=== PATIENT | male | born 1980 | race Two or more races ===

== ENCOUNTER 2023-12-12 01:24 | Emergency (ER) | payer OTHER ==
[~2023-12-12] VITALS: Ht 177.8 cm; Wt 126.4 kg
[2023-12-12 01:28] VITALS: TEMP 97.9
[2023-12-12 02:24] LABS: APPEARANCE,URINE HAZY (CLEAR); BILIRUBIN,URINE NEGATIVE (NEGATIVE); COLOR,URINE LIGHT YELLOW (YELLOW); GLUCOSE, URINE (UA) NEGATIVE (NEGATIVE); KETONES,URINE NEGATIVE (NEGATIVE); LEUKOCYTE ESTERASE ,URINE NEGATIVE (NEGATIVE); NITRATE,URINE NEGATIVE (NEGATIVE); OCCULT BLOOD,URINE NEGATIVE (NEGATIVE); UROBILINOGEN,URINE <=1.0 mg/dL (<=1.0)
[2023-12-12 02:30] LABS: PROTEIN,URINE NEGATIVE (NEGATIVE)
[2023-12-12 02:31] LABS: AMPHET/METH SCREEN,URINE NEGATIVE (NEGATIVE); BARBITURATE SCREEN, URINE NEGATIVE (NEGATIVE); BENZODIAZEPINES SCREEN,URINE NEGATIVE (NEGATIVE); CANNABINOID SCREEN,URINE NEGATIVE (NEGATIVE); COCAINE SCREEN,URINE NEGATIVE (NEGATIVE); METHADONE SCREEN, URINE NEGATIVE (NEGATIVE); OPIATE SCREEN,URINE NEGATIVE (NEGATIVE); PHENCYCLIDINE SCREEN,URINE NEGATIVE (NEGATIVE)
[2023-12-12 02:35] LABS: ALCOHOL, URINE DRUG SCREEN NEGATIVE (NEGATIVE)
[2023-12-12 02:40] LABS: BASOPHILS % (AUTO) 0.6 % (0.0-2.0); EOSINOPHILS % (AUTO) 0.8 % (1.0-6.0); HEMATOCRIT 48.9 % (41-53); HEMOGLOBIN 16.8 g/dL (13.5-17.5); LYMPHOCYTES # (AUTO) 2.5 K/uL (1.0-4.8); MEAN CORPUSCULAR HEMOGLOBIN 29.9 pg (26.0-34.0); MEAN CORPUSCULAR HGB CONC 34.3 G/dL (31.0-37.0); MEAN CORPUSCULAR VOLUME 87 fL (80-100); MONOCYTES # (AUTO) 0.7 K/uL (0.1-1.0); MONOCYTES % (AUTO) 4.4 % (2.0-9.0); NEUTROPHILS # (AUTO) 13.3 K/uL (1.8-7.7); NEUTROPHILS % (AUTO) 79.2 % (40.0-70.0); PLATELET COUNT (AUTO) 450 K/uL (150-450); RED BLOOD CELL COUNT(AUTO) 5.61 MIL/uL (4.50-5.90); RED CELL DISTRIBUTION WIDTH 14.1 % (11.5-14.5); WHITE BLOOD COUNT (AUTO) 16.8 K/uL (4.5-11.0)
[2023-12-12 02:41] LABS: ANION GAP 9 mmol/L (8-16); CALCIUM, TOTAL 8.7 mg/dL (8.8-10.5); CARBON DIOXIDE 29 mmol/L (22-29); CHLORIDE 100 mmol/L (98-107); CREATININE 1.25 mg/dL (0.60-1.30); GLOMERULAR FILTR. RATE CALC > 60 mL/min (>60); GLUCOSE,RANDOM 119 mg/dL (70-110); POTASSIUM 3.4 mmol/L (3.5-5.1); SODIUM SERUM 138 mmol/L (136-145); UREA NITROGEN, BLOOD 16 mg/dL (7-18)
[2023-12-12 02:46] LABS: ALANINE AMINOTRANSFERASE 48 U/L (12-78); ALBUMIN 4.1 g/dL (3.4-5.0); ALKALINE PHOSPHATASE 81 U/L (46-116); ASPARTATE AMINOTRANSFERASE 31 U/L (15-37); BILIRUBIN,TOTAL 1.3 mg/dL (0.1-1.0); TOTAL PROTEIN, SERUM 8.3 g/dL (6.4-8.2)
[2023-12-12] MEDS ORDERED: SODIUM CHLORIDE 0.9% 0 ML ONE (03:01)
[2023-12-12] MEDS ORDERED: IOHEXOL 350 MG/ML 100 ML VIAL ONE ×2 (03:02→06:38)
[2023-12-12] MEDS: ONDANSETRON HCL 4 MG/2 ML VIAL IVP ONE (03:33)
[2023-12-12] MEDS: KETOROLAC TROMETHAMINE 30 MG/ML VIAL IVP ONE (03:33)
[2023-12-12] MEDS: SODIUM CHLORIDE 0.9% 1,000 ML IV ONE (03:33)
[2023-12-12] MEDS ORDERED: TAMS0.4C94 PO (05:53)
[2023-12-12] MEDS ORDERED: ONDA-104 PO (05:54)
[2023-12-12] MEDS ORDERED: HYDR-4072 PO (05:54)
[2023-12-12] MEDS: TAMSULOSIN HCL 0.4 MG CAPSULE PO ONE (06:27)
[2023-12-12 06:34] VITALS: BP 148/79; PULSE 72; RESP 16; O2SAT 97
[2023-12-12] MEDS ORDERED: SODIUM CHLORIDE 0.9% 100 ML ONE (06:38)
== END 2023-12-12 06:51 | disposition home or self-care (01) ==
LOC: EMS 01:24
DX: N13.2 Hydronephrosis with renal and ureteral calculous obstruction (principal); I10 Essential (primary) hypertension; Z98.890 Other specified postprocedural states
CPT/HCPCS: 99285; 74177; 96374; 96361; 96375; 80048; 80076; 81003; 85025; 36415; 80307; Q9967; J1885; J2405; J7030; J7050